=== PATIENT | male | born 1985 | race Caucasian/White ===

== ENCOUNTER 2020-01-12 08:00 | Outpatient (CLI) | payer OTHER | END 2020-01-12 15:00 | disposition home or self-care (01) | LOC: PPH VACUNA 08:00 | DX: Z23 Encounter for immunization (principal) ==

== ENCOUNTER 2020-04-12 10:47 | Outpatient (CLI) | payer OTHER | END 2020-04-12 15:00 | disposition home or self-care (01) | LOC: PPH VACUNA 10:47 | DX: Z23 Encounter for immunization (principal) ==

== ENCOUNTER → 2020-06-16 10:14 | Outpatient (CLI) | payer OTHER | END | disposition home or self-care (01) | LOC: LAB 10:14 | DX: Z03.818 Encounter for observation for suspected exposure to other biological agents ruled out (principal) ==

== ENCOUNTER → 2020-08-11 08:54 | Outpatient (CLI) | payer OTHER | END | disposition home or self-care (01) | LOC: LAB 08:54 | DX: Z03.818 Encounter for observation for suspected exposure to other biological agents ruled out (principal) ==

== ENCOUNTER 2020-08-15 10:35 | Outpatient (CLI) | payer OTHER | END 2020-08-15 17:31 | disposition home or self-care (01) | LOC: LAB 10:35 | DX: Z03.818 Encounter for observation for suspected exposure to other biological agents ruled out (principal) ==

== ENCOUNTER 2020-08-17 08:22 | Outpatient (CLI) | payer OTHER | END 2020-08-17 08:23 | disposition home or self-care (01) | LOC: LAB 08:22 | PROVIDERS: ATTEND Internal Medicine | DX: I10 Essential (primary) hypertension (principal); R07.89 Other chest pain; M54.5 Low back pain; Z01.810 Encounter for preprocedural cardiovascular examination; E03.8 Other specified hypothyroidism; E78.89 Other lipoprotein metabolism disorders; E55.9 Vitamin D deficiency, unspecified; E11.51 Type 2 diabetes mellitus with diabetic peripheral angiopathy without gangrene; E11.9 Type 2 diabetes mellitus without complications; G62.89 Other specified polyneuropathies ==

== ENCOUNTER → 2020-09-05 08:56 | Outpatient (CLI) | payer OTHER | END | disposition home or self-care (01) | LOC: LAB 08:56 | PROVIDERS: ATTEND Emergency Medicine Pediatric Emergency Medicine | DX: Z03.818 Encounter for observation for suspected exposure to other biological agents ruled out (principal) ==

== ENCOUNTER → 2020-09-16 | Outpatient (CLI) | payer OTHER | END | disposition home or self-care (01) | LOC: MRI 08:56 | PROVIDERS: ATTEND Internal Medicine | DX: I10 Essential (primary) hypertension (principal); E78.89 Other lipoprotein metabolism disorders; E55.9 Vitamin D deficiency, unspecified; G44.1 Vascular headache, not elsewhere classified | CPT/HCPCS: 70552 ==